=== PATIENT | female | born 1975 | race African-American/Black ===

== ENCOUNTER 2022-02-19 06:16 | Emergency (ER) | payer MEDICAID ==
[~2022-02-19] VITALS: Ht 172.7 cm; Wt 69.9 kg
[2022-02-19] MEDS ORDERED: ACETAMINOPHEN 325 MG TABLET PO ONE (06:30)
[2022-02-19] MEDS ORDERED: ACETAMINOPHEN 325 MG TABLET ONE (06:40)
--- NOTE | 2022-02-19 06:50 | NUR ---
PT RETURNED TO ER BED [address]
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
[2022-02-19] MEDS ORDERED: IBUP-1955 PO (07:31)
--- NOTE | 2022-02-19 08:09 | NUR ---
Patient discharged to home in stable condition. Written and verbal after care instructions given. Patient verbalizes understanding of instruction.
[2022-02-19 08:10] VITALS: BP 126/82
== END 2022-02-19 08:10 | disposition home or self-care (01) ==
LOC: ER 06:23
DX: S00.83XA Contusion of other part of head, initial encounter (principal); M54.2 Cervicalgia; Y01.XXXA Assault by pushing from high place, initial encounter; Y93.89 Activity, other specified; Y92.89 Other specified places as the place of occurrence of the external cause; Y99.8 Other external cause status
CPT/HCPCS: 70450-TC; 72125-TC

== ENCOUNTER 2022-02-19 08:44 | Emergency (ER) | payer MEDICAID ==
[~2022-02-19 08:44] MED LIST: IBUP-1955 PO
--- NOTE | 2022-02-19 08:49 | NUR ---
Called. NO response- [facility]
== END 2022-02-19 08:50 | disposition home or self-care (01) ==
LOC: ER 08:46
DX: Z53.21 Procedure and treatment not carried out due to patient leaving prior to being seen by health care provider (principal)

== ENCOUNTER 2022-02-19 15:12 | Emergency (ER) | payer MEDICAID ==
[~2022-02-19] VITALS: Ht 170.2 cm; Wt 61.2 kg
[2022-02-19 15:24] VITALS: BP 131/81
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
--- NOTE | 2022-02-19 15:53 | NUR ---
Patient discharged to home in stable condition. Written and verbal after care instructions given. Patient verbalizes understanding of instruction.
== END 2022-02-19 15:53 | disposition home or self-care (01) ==
LOC: ER 15:13
DX: S00.81XA Abrasion of other part of head, initial encounter (principal); F17.200 Nicotine dependence, unspecified, uncomplicated; Z59.00 Homelessness unspecified; Z79.1 Long term (current) use of non-steroidal anti-inflammatories (NSAID); Y04.8XXA Assault by other bodily force, initial encounter; Y93.89 Activity, other specified; Y92.89 Other specified places as the place of occurrence of the external cause; Y99.8 Other external cause status

== ENCOUNTER → 2022-03-17 | Emergency (ER) | payer MEDICAID ==
[~2022-03-17] VITALS: Ht 172.7 cm; Wt 20.4 kg
[~2022-03-17] MED LIST changes: +EMTR1TAB12 PO; +EMTRICITABINE 200 MG CAPSULE PO ONE; +EMTRICITABINE/TENOFOVIR 1 TAB PO ONE; +RALT400T PO; +RALTEGRAVIR POTASSIUM 400 MG TABLET PO ONE; +TENOFOVIR DISOPROXIL FUMARATE 300 MG TABLET PO ONE
[2022-03-17 12:13] VITALS: BP 115/77
--- NOTE | 2022-03-17 13:02 | NUR ---
REPORT GIVEN TO [facility]. [facility] (NO ETA GIVEN)
--- NOTE | 2022-03-17 13:20 | NUR ---
dr mark explained to the pt hiv test result won't be ready she needs to follow up tomorrow, and also dr explained single hiv test does not rule out hiv. she needs to be tested several times.he recommended pt to start prophylactic hiv tratment but pt refused despite explaing risks and benefits.
[2022-03-17 13:56] LABS: ALBUMIN 3.9 g/dL (3.4-5.0); BILIRUBIN,DIRECT 0.1 mg/dL (0.0-0.2); BILIRUBIN,TOTAL 0.5 mg/dL (0.2-1.0); TOTAL PROTEIN, SERUM 7.9 g/dL (6.4-8.2)
[2022-03-21 11:07] LABS: *HIV-1 RNA BY PCR <20 copies/mL (.)
== END | disposition home or self-care (01) ==
LOC: ER 12:04
DX: Z11.3 Encounter for screening for infections with a predominantly sexual mode of transmission (principal); F17.200 Nicotine dependence, unspecified, uncomplicated; Z59.00 Homelessness unspecified; Z79.899 Other long term (current) drug therapy
CPT/HCPCS: 36415; 80076-TC; 86706; 86803; 87536; 87806

== ENCOUNTER 2022-03-19 01:34 | Emergency (ER) | payer MEDICAID ==
[~2022-03-19 01:34] MED LIST changes: -EMTRICITABINE 200 MG CAPSULE PO ONE; -EMTRICITABINE/TENOFOVIR 1 TAB PO ONE; -RALTEGRAVIR POTASSIUM 400 MG TABLET PO ONE; -TENOFOVIR DISOPROXIL FUMARATE 300 MG TABLET PO ONE
--- NOTE | 2022-03-19 02:00 | NUR ---
CALLED FOR TRIAGE NOT IN WAITING ROOM.
--- NOTE | 2022-03-19 02:30 | NUR ---
CALLED FOR TRIAGE NOT IN WAITING ROOM.
--- NOTE | 2022-03-19 03:03 | NUR ---
LEFT WITHOUT BEING SEEN.
== END 2022-03-19 03:03 | disposition left against medical advice (07) ==
LOC: ER 01:39
DX: Z53.21 Procedure and treatment not carried out due to patient leaving prior to being seen by health care provider (principal)

== ENCOUNTER 2022-03-19 09:53 | Emergency (ER) | payer MEDICAID ==
[~2022-03-19] VITALS: Ht 175.3 cm; Wt 59.0 kg
[2022-03-19 10:05] VITALS: BP 120/77
--- NOTE | 2022-03-19 10:14 | NUR ---
Patient discharged to home in stable condition. Written and verbal after care instructions given. Patient verbalizes understanding of instruction.
== END 2022-03-19 10:14 | disposition home or self-care (01) ==
LOC: ER 09:55
DX: Z76.0 Encounter for issue of repeat prescription (principal); F17.200 Nicotine dependence, unspecified, uncomplicated; Z59.00 Homelessness unspecified; Z79.899 Other long term (current) drug therapy

== ENCOUNTER 2022-04-03 01:43 | Emergency (ER) | payer MEDICAID ==
[~2022-04-03] VITALS: Ht 175.3 cm; Wt 59.0 kg
[2022-04-03 02:12] VITALS: BP 123/70
--- NOTE | 2022-04-03 03:04 | NUR ---
xray at bedside
--- NOTE | 2022-04-03 03:10 | NUR ---
profile mill operator tape control at bedside
--- NOTE | 2022-04-03 03:35 | NUR ---
measurement technician at bedside
[2022-04-03 03:41] LABS: BASOPHILS % (AUTO) 0.2 % (0.0-2.0); EOSINOPHILS % (AUTO) 3.3 % (0.0-6.0); HEMATOCRIT 31 % (33-45); HEMOGLOBIN 9.8 g/dL (11.5-14.8); LYMPHOCYTES # (AUTO) 1.3 K/uL (0.8-4.8); LYMPHOCYTES % (AUTO) 37.3 % (20.0-44.0); MEAN CORPUSCULAR HGB CONC 31 g/dl (31.0-36.0); MEAN CORPUSCULAR VOLUME 79 fL (82-100); MONOCYTES # (AUTO) 0.5 K/uL (0.1-1.30); MONOCYTES % (AUTO) 14.1 % (2.0-12.0); NEUTROPHILS # (AUTO) 1.6 K/uL (1.8-8.9); NEUTROPHILS % (AUTO) 45.1 % (43.0-81.0); PLATELET COUNT (AUTO) 229 K/uL (150-450); RED BLOOD CELL COUNT(AUTO) 3.96 MIL/uL (4.0-5.2); WHITE BLOOD COUNT (AUTO) 3.5 K/uL (4.3-11.0)
[2022-04-03 03:52] LABS: CALCIUM, SERUM 8.6 mg/dL (8.5-10.1); CREATININE 0.8 mg/dL (0.6-1.3); POTASSIUM 3.9 mmol/L (3.5-5.1)
[2022-04-03 04:03] LABS: ALBUMIN 3.4 g/dL (3.4-5.0); BILIRUBIN,TOTAL 0.4 mg/dL (0.2-1.0); TOTAL PROTEIN, SERUM 7.3 g/dL (6.4-8.2)
[2022-04-03] MEDS ORDERED: BENZ-13 PO (05:54)
--- NOTE | 2022-04-03 06:07 | NUR ---
Patient discharged to home in stable condition. Written and verbal after care instructions given. Patient verbalizes understanding of instruction.
== END 2022-04-03 06:17 | disposition home or self-care (01) ==
LOC: ER 01:46
DX: R05.9 Cough, unspecified (principal); R60.9 Edema, unspecified; F17.200 Nicotine dependence, unspecified, uncomplicated; Z59.00 Homelessness unspecified; Z79.899 Other long term (current) drug therapy
CPT/HCPCS: 36415; 71045-TC; 80053-TC; 83880; 85025-TC; 93970-TC